=== PATIENT | male | born 1990 | race Caucasian/White ===

== ENCOUNTER 2017-08-05 11:51 | Emergency (ER) | payer OTHER ==
[~2017-08-05] VITALS: Ht 165.1 cm; Wt 85.7 kg
[2017-08-05 11:56] VITALS: Ht 165.1 cm; Wt 85.7 kg
[2017-08-05] MEDS ORDERED: LORAZEPAM 1 MG TAB PO ONE (13:30)
--- NOTE | 2017-08-05 13:50 | RADRPT ---
PROCEDURE: XR Chest. CLINICAL INDICATION: chest pain TECHNIQUE: Single frontal view of the chest was obtained COMPARISON: None FINDINGS: The heart and mediastinum are within normal limits. The lungs are clear. There is no pleural effusion or pneumothorax. RPTAT: AA IMPRESSION: No acute disease. .Conrado Saavedra MD, Date Time Electronically viewed and signed by .Conrado Saavedra MD, on 08/05/2017 13:50 .S/
[2017-08-05] MEDS ORDERED: BENZ200C43 PO (14:17)
[2017-08-05] MEDS ORDERED: PHEN177S43 MT (14:17)
--- NOTE | 2017-08-05 16:20 | ERD ---
ER Documentation Chief Complaint Chief Complaint COUGH, SORETHROAT, BODY ACHES X 4 DAYS HPI Patient is an otherwise healthy 27-year-old male presenting to the emergency department with complaints of sore throat, body aches, and cough ongoing intermittently for the past 4 days. Symptoms have worsened. He reports mildly productive cough. Throat pain is worse when swallowing, eating, and drinking. He denies fevers, chills, or other symptoms at this time. ROS All systems reviewed and are negative except as per history of present illness. Medications Home Meds Active Scripts Benzonatate* (Benzonatate*) 200 Mg Capsule, 200 MG PO TID Y for COUGH, #20 CAP Prov:BEKA DARLING PA-C 08/05/17 Phenol* (Chloraseptic* [place]) 177 Ml [place].pump, 2 SPRAY MT Q2H Y for SORE THROAT, #1 BOTTLE Prov:BEKA DARLING PA-C 08/05/17 Allergies Allergies: Coded Allergies: No Known Allergy (Unverified , 08/05/17) PMhx/Soc Medical and Surgical Hx: pt denies Medical Hx, pt denies Surgical Hx Hx Respiratory Disorders: Yes (Asthma) Hx Alcohol Use: Yes (social) Hx Substance Use: No Hx Tobacco Use: Yes Smoking Status: Current every day smoker Physical Exam Vitals Vital Signs Date Time Temp Pulse Resp B/P Pulse Ox O2 Delivery O2 Flow Rate FiO2 08/05/17 11:56 98.1 102 18 162/71 98 Physical Exam Const: Nontoxic, well-appearing male in no acute distress. Head: Atraumatic Eyes: Normal Conjunctiva ENT: Normal External Ears, Nose and Mouth. Mild tonsillar erythema but no hypertrophy. No exudate. Airway is clear. No uvular deviation. Neck: Full range of motion..~ No meningismus. Resp: Clear to auscultation bilaterally Cardio: Regular rate and rhythm, no murmurs Skin: No petechiae or rashes Ext: No cyanosis, or edema Neur: Awake and alert Psych: Normal Mood and Affect Results 24 hrs Current Medications Medications (Trade) Dose Ordered Sig/Abebe Route PRN Reason Start Time Stop Time Status Last Admin Dose Admin Lorazepam (Ativan) 1 mg ONCE ONCE PO 08/05/17 13:30 08/05/17 13:30 DC Procedures/MDM Patient is a 27-year-old male presenting to the emergency department with complaints of sore throat and cough. Physical examination is essentially unremarkable besides some mild tonsillar erythema. Rapid strep test is negative. 3 showed no acute abnormalities and was interpreted by the radiologist. The patient is stable and appropriate for outpatient management with prescriptions. Low suspicion for pneumothorax, pulmonary embolism, pneumonia, sepsis, or other emergent conditions. No evidence of life- threatening pathology at time of discharge. Pt/family in agreement with discharge plan/diagnosis. Pt/family advised to return immediately with any new or worsening symptoms. Follow-up with primary care physician within the next 1- 2 days. PROCEDURE: XR Chest. CLINICAL INDICATION: chest pain TECHNIQUE: Single frontal view of the chest was obtained COMPARISON: None FINDINGS: The heart and mediastinum are within normal limits. The lungs are clear. There is no pleural effusion or pneumothorax. RPTAT: AA IMPRESSION: No acute disease. .Conrado Saavedra MD, MD Date Time Electronically viewed and signed by .Conrado Saavedra MD, MD on 08/05/2017 13: 50 Departure Diagnosis: Primary Impression: Sore throat Additional Impression: Cough Condition: Fair Patient Instructions: When You Have a Sore Throat, Cough, Chronic, Uncertain Cause, (Adult) Referrals: [facility] YOU HAVE RECEIVED A MEDICAL SCREENING EXAM AND THE RESULTS INDICATE THAT YOU DO NOT HAVE A CONDITION THAT REQUIRES URGENT TREATMENT IN THE EMERGENCY DEPARTMENT. FURTHER EVALUATION AND TREATMENT OF YOUR CONDITION CAN WAIT UNTIL YOU ARE SEEN IN YOUR DOCTORS OFFICE WITHIN THE NEXT 1-2 DAYS. IT IS YOUR RESPONSIBILITY TO MAKE AN APPOINTMENT FOR [facility]. IF YOU HAVE A PRIMARY DOCTOR --you should call your primary doctor and schedule an appointment IF YOU DO NOT HAVE A PRIMARY DOCTOR YOU CAN CALL OUR PHYSICIAN REFERRAL HOTLINE AT IF YOU CAN NOT AFFORD TO SEE A PHYSICIAN YOU CAN CHOSE FROM THE FOLLOWING [facility] [address] [facility] [address] [facility] [address] [facility] [address] [facility]. [facility] [address] [facility]. [facility]. [address] Additional Instructions: Call your primary care doctor TOMORROW for an appointment during the next 1-2 days.See the doctor sooner or return here if your condition worsens before your appointment time. BEKA DARLING PA-C Aug 05, 2017 16:20
== END 2017-08-05 14:27 | disposition home or self-care (01) ==
LOC: FTE 11:51
DX: J02.9 Acute pharyngitis, unspecified (principal); R05 Cough; J45.909 Unspecified asthma, uncomplicated; F17.210 Nicotine dependence, cigarettes, uncomplicated
CPT/HCPCS: 71010; 87880; Z7502

== ENCOUNTER 2017-08-09 10:35 | Emergency (ER) | payer OTHER ==
[~2017-08-09] VITALS: Wt 85.6 kg
[~2017-08-09 10:35] MED LIST: BENZ200C43 PO; PHEN177S43 MT
[2017-08-09] MEDS ORDERED: AZIT250T94 PO (11:45)
[2017-08-09] MEDS ORDERED: ALBU8.5H3 INH (11:45)
--- NOTE | 2017-08-11 04:27 | ERD ---
ER Documentation Chief Complaint Chief Complaint COUGH, THROAT PAIN, CONGESTION HPI This is a 27-year-old male presents to the ER with a 4 day history of cough, sore throat, chest congestion, stuffy nose. Patient was seen here and states that he is getting better however he has not gotten completely better and is concerned because of this. 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 He denies any chest pain or shortness of breath. ROS 12 point review of systems was done, all negative except per HPI. Medications Home Meds Active Scripts Albuterol Sulfate* (Proair HFA*) 8.5 Gm Hfa.aer.ad, 2 PUFF INH Q4, #1 INHALER Prov:DARNELL GABRIEL 08/09/17 Azithromycin* (Zithromax*) 250 Mg Tablet, 250 MG PO .ZPACK DIRECTED, #6 TAB TAKE 500 MG (2 TABS) THE FIRST DAY THEN 250 MG (1 TAB) DAYS 2-5 Prov:DARNELL GABRIEL 08/09/17 Benzonatate* (Benzonatate*) 200 Mg Capsule, 200 MG PO TID Y for COUGH, #20 CAP Prov:BEKA DARLING PA-C 08/05/17 Phenol* (Chloraseptic* [place]) 177 Ml [place].pump, 2 SPRAY MT Q2H Y for SORE THROAT, #1 BOTTLE Prov:BEKA DARLING PA-C 08/05/17 Allergies Allergies: Coded Allergies: No Known Allergy (Unverified , 08/09/17) PMhx/Soc Hx Respiratory Disorders: Yes (Asthma) Hx Alcohol Use: Yes (social) Hx Substance Use: No Hx Tobacco Use: Yes Smoking Status: Current every day smoker Physical Exam Vitals Vital Signs Date Time Temp Pulse Resp B/P Pulse Ox O2 Delivery O2 Flow Rate FiO2 08/09/17 10:37 97.8 85 17 118/68 98 Physical Exam GENERAL: The patient is well-developed, well-nourished, in no acute distress. NECK: Cervical spine is non tender with no step off. Supple, no nuchal rigidity HEENT: Atraumatic. Pupils equal, round and reactive to light. Extraocular muscles are grossly intact. Conjunctivae pink, no discharge. Bilateral tympanic membranes are clear with no evidence of erythema, effusion or dulling of the light reflex. Tonsilar erythema with no exudates or uvular deviation. Clear rhinorrhea. RESPIRATORY: Clear to auscultation bilaterally. There are no rales, wheezes or rhonchi. HEART: Regular rate and rhythm. No murmurs, clicks, rubs or gallops. EXTREMITIES: No clubbing or cyanosis. Full range of motion. Grossly neurovascularly intact. NEUROLOGIC: Alert and oriented. Cranial nerves II through XII are intact. SKIN: There is no rash. The skin is warm and dry. Procedures/MDM Differential diagnosis includes but is not limited to; Viral URI, allergic rhinitis, bronchitis, pertussis,pneumonia. She will be given azithromycin as patient's symptoms are not getting any better, he will be treated for possible bacterial etiology of upper respiratory infection.. Clinical suspicion for pneumonia is low as patient appears well, is not hypoxic or in any respiratory distress. Additionally, patients physical examination is benign. Plan was discussed with patient they understand and agree. Patient needs to follow up with PCP in 1-2 days or return to ER sooner if symptoms worsen. Departure Diagnosis: Primary Impression: Upper respiratory infection Condition: Stable Patient Instructions: Bronchitis, Antiobiotic Treatment (Adult) Additional Instructions: Call your primary care doctor TOMORROW for an appointment during the next 1-2 days.See the doctor sooner or return here if your condition worsens before your appointment time. DARNELL GABRIEL Aug 11, 2017 04:27
== END 2017-08-09 12:00 | disposition home or self-care (01) ==
LOC: FTE 10:35
DX: J06.9 Acute upper respiratory infection, unspecified (principal); J45.909 Unspecified asthma, uncomplicated; F17.210 Nicotine dependence, cigarettes, uncomplicated
CPT/HCPCS: 99284